=== PATIENT | male | born 1990 | race African-American/Black ===

== ENCOUNTER 2017-03-29 19:12 | Emergency (ER) | payer BC, OTHER ==
[~2017-03-29] VITALS: Ht 177.8 cm; Wt 108.0 kg
[2017-03-29 19:20] VITALS: BP 119/75; PULSE 97; RESP 18; TEMP 99; O2SAT 98
--- NOTE | 2017-03-29 19:20 | PD ---
HPI Chief Complaint: ba Time Seen by Provider: 19:19 Travel History International Travel<30 days: No Contact w/Intl Traveler<30days: No Traveled to known affect area: No History of Present Illness HPI 26-year-old male with history of schizophrenia presents to emergency department for evaluation under Ballesteros. Patient states he has been hearing demons speaking to him. He states they're trying to get his soul. This led to an argument with family members. Please for contacted and the patient was placed under Ballesteros act. He denies suicidal or homicidal ideations. States that he battles the demons every day. Denies any illicit drug use. States he takes medication as prescribed. He has no other symptoms to report. PFSH Past Medical History Schizophrenia: Yes Social History Alcohol Use: No Tobacco Use: No Substance Use: No Allergies-Medications (Allergen,Severity, Reaction): Coded Allergies: No Known Allergies (Unverified , 03/29/17) Reported Meds & Prescriptions Reported Meds & Active Scripts Active Reported Risperidone 2 Mg Tab 2 Mg PO Q12HR Divalproex DR (Divalproex Sodium) 500 Mg Tabdr 1,000 Mg PO HS Benztropine (Benztropine Mesylate) 0.5 Mg Tab 1 Mg PO BID Review of Systems Except as stated in HPI: all other systems reviewed are Neg Physical Exam Narrative GENERAL: Well-nourished male patient, no acute distress SKIN: Focused skin assessment warm/dry. HEAD: Atraumatic. Normocephalic. EYES: Pupils equal and round. No scleral icterus. No injection or drainage. ENT: No nasal bleeding or discharge. Mucous membranes pink and moist. NECK: Trachea midline. No JVD. CARDIOVASCULAR: Regular rate and rhythm. No murmur appreciated. RESPIRATORY: No accessory muscle use. Clear to auscultation. Breath sounds equal bilaterally. GASTROINTESTINAL: Abdomen soft, non-tender, nondistended. Hepatic and splenic margins not palpable. MUSCULOSKELETAL: No obvious deformities. No clubbing. No cyanosis. No edema. NEUROLOGICAL: Awake and alert. No obvious cranial nerve deficits. Motor grossly within normal limits. Normal speech. Data Data Last Documented VS Vital Signs Date Time Temp Pulse Resp B/P (MAP) Pulse Ox O2 Delivery O2 Flow Rate FiO2 03/29/17 23:13 97.1 76 18 125/82 (96) 98 Room Air Orders Orders Complete Blood Count With Diff (03/29/17 19:19) Basic Metabolic Panel (Bmp) (03/29/17 19:19) Psych Screen (03/29/17 19:19) Drug Screen, Random Urine (03/29/17 19:19) Alcohol (Ethanol) (03/29/17 19:19) Labs Laboratory Tests Test 03/29/17 19:25 03/29/17 21:10 White Blood Count 10.9 TH/MM3 Red Blood Count 5.58 MIL/MM3 Hemoglobin 15.2 GM/DL Hematocrit 44.1 % Mean Corpuscular Volume 79.2 FL Mean Corpuscular Hemoglobin 27.3 PG Mean Corpuscular Hemoglobin Concent 34.5 % Red Cell Distribution Width 12.9 % Platelet Count 284 TH/MM3 Mean Platelet Volume 7.9 FL Neutrophils (%) (Auto) 61.3 % Lymphocytes (%) (Auto) 27.2 % Monocytes (%) (Auto) 8.5 % Eosinophils (%) (Auto) 2.0 % Basophils (%) (Auto) 1.0 % Neutrophils # (Auto) 6.7 TH/MM3 Lymphocytes # (Auto) 3.0 TH/MM3 Monocytes # (Auto) 0.9 TH/MM3 Eosinophils # (Auto) 0.2 TH/MM3 Basophils # (Auto) 0.1 TH/MM3 CBC Comment DIFF FINAL Differential Comment Blood Urea Nitrogen 16 MG/DL Creatinine 1.14 MG/DL Random Glucose 93 MG/DL Calcium Level 9.7 MG/DL Sodium Level 138 MEQ/L Potassium Level 4.0 MEQ/L Chloride Level 103 MEQ/L Carbon Dioxide Level 27.9 MEQ/L Anion Gap 7 MEQ/L Estimat Glomerular Filtration Rate 93 ML/MIN Ethyl Alcohol Level LESS THAN 3 MG/DL Urine Opiates Screen NEG Urine Barbiturates Screen NEG Urine Amphetamines Screen NEG Urine Benzodiazepines Screen NEG Urine Cocaine Screen NEG Urine Cannabinoids Screen NEG MDM Medical Decision Making Medical Screen Exam Complete: Yes Emergency Medical Condition: Yes Medical Record Reviewed: Yes Differential Diagnosis Mood disorder versus personality disorder versus adjustment reaction disorder Narrative Course 26-year-old male presents to the emergency department under Ballesteros act for psychiatric evaluation. Patient appears well and without distress. Lab work is without acute concern. Patient is medically cleared to undergo psychiatric screening for further evaluation and disposition. Mental health screening discussed with the patient. Psychiatric screen ordered. Diagnosis Primary Impression: Auditory hallucination Additional Impression: Schizophrenia Qualified Codes: F20.9 - Schizophrenia, unspecified Condition: Stable Monica Coates Mar 29, 2017 19:20
[2017-03-29] MEDS ORDERED: BENZ0.5T PO (19:56)
[2017-03-29] MEDS ORDERED: DIVA500T PO (19:57)
[2017-03-29] MEDS ORDERED: RISP2TAB2 PO (19:57)
[2017-03-29 19:58] LABS: AUTOMATED NEUTROPHIL # 6.7 TH/MM3 (1.8-7.7); BASOPHIL # 0.1 TH/MM3 (0-0.2); EOSINOPHIL # 0.2 TH/MM3 (0-0.4); HEMATOCRIT 44.1 % (39.0-51.0); HEMO FLAGS DIFF FINAL; LYMPH % 27.2 % (9.0-44.0); MEAN CELL VOLUME 79.2 FL (80.0-100.0); MEAN CORPUSCULAR HEMOGLOBIN 27.3 PG (27.0-34.0); MEAN CORPUSCULAR HGB CONC 34.5 % (32.0-36.0); MONO % 8.5 % (0.0-8.0); NEUT % 61.3 % (16.0-70.0); PLATELET COUNT 284 TH/MM3 (150-450); RED BLOOD COUNT 5.58 MIL/MM3 (4.50-5.90); RED CELL DISTRIBUTION WIDTH 12.9 % (11.6-17.2); WHITE BLOOD COUNT 10.9 TH/MM3 (4.0-11.0)
[2017-03-29 20:02] LABS: ANION GAP 7 MEQ/L (5-15); BICARBONATE 27.9 MEQ/L (21.0-32.0); BLOOD UREA NITROGEN 16 MG/DL (7-18); CHLORIDE 103 MEQ/L (98-107); GLOMERULAR FILTRATION RATE 93 ML/MIN (>89); SODIUM (NA) 138 MEQ/L (136-145)
[2017-03-29 20:08] LABS: ALCOHOL LESS THAN 3 MG/DL (0-5)
[2017-03-29 23:13] VITALS: BP 125/82; PULSE 76; RESP 18; TEMP 97.1; O2SAT 98
[2017-03-30 02:17] VITALS: BP 113/55; PULSE 75; RESP 18; TEMP 97; O2SAT 98
[2017-03-30 05:07] VITALS: BP 99/52; PULSE 62; RESP 18; TEMP 97; O2SAT 98
[2017-03-30 11:30] VITALS: BP 118/68; PULSE 80; RESP 18; O2SAT 98
[2017-03-30 14:40] VITALS: BP 110/62; PULSE 76; RESP 20
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
== END 2017-03-30 19:04 | disposition home or self-care (01) ==
LOC: NEPD 19:12 → NEPJ 03-30 19:04
DX: F20.9 Schizophrenia, unspecified (principal); F43.25 Adjustment disorder with mixed disturbance of emotions and conduct
CPT/HCPCS: 80048; 80307; 85025; 99284